=== PATIENT | male | born 1995 | race Caucasian/White ===

== ENCOUNTER 2022-07-04 09:25 | Emergency (ER) | payer OTHER ==
[~2022-07-04] VITALS: Ht 177.8 cm; Wt 93.0 kg
[2022-07-04 10:00] VITALS: BP 141/99
--- NOTE | 2022-07-04 11:26 | NUR ---
PT AMBULATED TO ER BED 8
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
--- NOTE | 2022-07-04 11:55 | NUR ---
XRAY AT BEDSIDE
--- NOTE | 2022-07-04 12:15 | NUR ---
PATIENT TAKEN TO CT VIA W/C
[2022-07-04] MEDS ORDERED: KETOROLAC 15 MG/ML VIAL IM ONE (13:45)
[2022-07-04] MEDS ORDERED: IBUP-2213 PO (13:46)
[2022-07-04] MEDS ORDERED: LID5T TP (13:47)
[2022-07-04 14:37] VITALS: BP 140/78
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
== END 2022-07-04 14:37 | disposition home or self-care (01) ==
LOC: MED 09:25
DX: S63.501A Unspecified sprain of right wrist, initial encounter (principal); S20.219A Contusion of unspecified front wall of thorax, initial encounter; S89.92XA Unspecified injury of left lower leg, initial encounter; Z79.899 Other long term (current) drug therapy; V29.9XXA Motorcycle rider (driver) (passenger) injured in unspecified traffic accident, initial encounter; Y93.89 Activity, other specified; Y92.89 Other specified places as the place of occurrence of the external cause; Y99.8 Other external cause status
CPT/HCPCS: 36415; 71111; 71250; 73110; 73562; 84484; 93005; 96372; 99285; J1885